=== PATIENT | male | born 1965 | race Two or more races ===

== ENCOUNTER 2016-10-28 23:44 | Emergency (ER) | payer MEDICARE, MEDICAID ==
[~2016-10-28] VITALS: Ht 170.2 cm; Wt 101.6 kg
[~2016-10-28 23:44] MED LIST: ALBUTEROL SULF8.5 GM INH; KEFLEX500 MG ORAL; MUCINEX DM ER1 EACH PO; NEXAFED30 MG ORAL; PREDNISONE20 MG ORAL; PROMETHAZINE-C118 M1 ORAL
[2016-10-28 23:55] VITALS: BP 138/88
[2016-10-29] MEDS ORDERED: Bactrim DS (160mg/800mg) tab ORAL ONE
[2016-10-29] MEDS ORDERED: Bacitracin Oint UD TOPIC ONE
--- NOTE | 2016-10-29 00:04 | Emergency Room Report ---
History of Present Illness General Chief Complaint: Skin Rash/Abscess Source: Patient Present Illness HPI Patient presents with pain and foreign body sensation in his left hand after he has been clearing brush 3 days ago. Has been using alcohol spray and Benadryl cream. The redness is increasing. He feels that this piece of glass stuck in his middle finger knuckle. No fevers. No joint pain. Swelling in the area. Pain 5/10, somewhat burning and constant, not radiating. tetanus up-to-date R handed Allergies: Coded Allergies: ASPIRIN (Verified Allergy, Unknown, 11/12/14) Grass (Verified Allergy, Unknown, 11/12/14) Patient History Past Medical History: see triage record Social History: Denies: smoking Social History Narrative clearing grandfather's brush Reviewed Nursing Documentation: PMH: Agreed, PSxH: Agreed Nursing Documentation-PMH Hx Asthma: Yes Review of Systems Constitutional: Denies: fever Respiratory: Denies: shortness of breath Cardiovascular: Denies: chest pain Gastrointestinal: Denies: nausea Musculoskeletal: Reports: see HPI Skin: Reports: see HPI Neurological: Denies: numbness Physical Exam Vital Signs Date Time Temp Pulse Resp B/P Pulse Ox O2 Delivery O2 Flow Rate FiO2 10/28/16 23:48 97.7 66 18 138/88 96 Room Air Sp02 EP Interpretation: reviewed, normal General Appearance: well appearing, no apparent distress Head: normocephalic, atraumatic Eyes: bilateral eye normal inspection ENT: hearing grossly normal, normal voice, moist mucus membranes Neck: full range of motion, supple Respiratory: no respiratory distress, speaking full sentences Cardiovascular #1: regular rate, rhythm Cardiovascular #2: 2+ radial (L) - good cap fill Gastrointestinal: normal inspection Musculoskeletal: digits/nails normal, normal range of motion, swelling - dorsally L hand Neurologic: alert, normal gait, grossly normal Psychiatric: mood/affect normal Skin: no rash, other - minimal erythema L hand dorsally Medical Decision Making Diagnostic Impression: Primary Impression: Cellulitis of hand ER Course Patient with swelling erythema and FB sensation L hand. Ddx: cellulitis, FB, contact dermatitis amongst others. Eval with x-ray. Treatment with antibiotics PO and topically. Also given motrin. Xrays without FB. Discussed possible splinter. Improved with treatment. Patient stable for outpatient observation and treatment. Other X-Ray Diagnostic Results Other X-Ray Diagnostic Results : X-Ray ordered: hand # of Views/Limited Vs Complete: 3 View Indication: Other EP Interpretation: Yes Interpretation: no dislocation, no fractures, other - sts Impression: No acute disease Interpreting ER Provider: signed Rafa Vazquez MD Last Vital Signs Date Time Temp Pulse Resp B/P Pulse Ox O2 Delivery O2 Flow Rate FiO2 10/29/16 01:03 97.7 18 138/88 96 Room Air 10/28/16 23:48 66 Status: improved Disposition: HOME, SELF-CARE Condition: Improved Scripts Diphenhydramine Hcl* (BENADRYL*) 25 Mg Capsule 25 MG ORAL Q6H Y for Itching, #14 CAP Prov: Rafa Vazquez M.D. 10/29/16 Trimethoprim/Sulfamethoxazole 160/800* (BACTRIM DS TABLET*) 1 Each Tablet 1 TAB ORAL Q12H, #14 TAB 0 Refills Prov: Rafa Vazquez M.D. 10/29/16 Bacitracin (Bacitracin) 28.4 Gm Oint...g. 1 APPLIC TOPIC BID, #10 GM Prov: Rafa Vazqeuz M.D. 10/29/16 Rafa Vazquez M.D. Oct 29, 2016 00:04
[2016-10-29] MEDS ORDERED: BACITRACIN15 GM TOPIC (00:37)
[2016-10-29] MEDS ORDERED: BENADRYL25 MG ORAL (00:37)
[2016-10-29] MEDS ORDERED: BACTRIM DS TAB1 EAC1 ORAL (00:37)
[2016-10-29 01:03] VITALS: BP 138/88
--- NOTE | 2016-10-29 11:05 | Diagnostic Imaging Report ---
Indication: FB Technique: 3 views left hand Comparison: none Findings: A large ring is seen on the fourth finger. Per technologist, patient unable to remove. No acute fractures. No dislocations. Joint spaces are preserved. Impression: No acute process This agrees with the preliminary interpretation provided by the emergency room physician
== END 2016-10-29 01:03 | disposition home or self-care (01) ==
LOC: EMR 23:59
DX: L03.114 Cellulitis of left upper limb (principal); J45.909 Unspecified asthma, uncomplicated
CPT/HCPCS: 99284

== ENCOUNTER 2018-07-22 14:29 | Emergency (ER) | payer MEDICAID, MEDICARE ==
[~2018-07-22] VITALS: Ht 170.2 cm; Wt 104.3 kg
[~2018-07-22 14:29] MED LIST changes: +BACITRACIN15 GM TOPIC; +BACTRIM DS TAB1 EAC1 ORAL; +BENADRYL25 MG ORAL
[2018-07-22 14:40] VITALS: BP 149/92
--- NOTE | 2018-07-22 14:40 | NUR ---
ED Nurse Note: Patient walked into ED c/o chest tightness that started last night, patient reports of no pain however states that he is having trouble breathing, patient is actively coughing, o2 sat at 98%. patient is alert and oriented x4, ambulatory with a steady gait, VSS
--- NOTE | 2018-07-22 14:44 | Emergency Room Report ---
History of Present Illness General Chief Complaint: chest tightness Source: Patient Present Illness HPI Patient is a 52-year-old male presented after increased chest tightness since last night. He reports having increased nonproductive cough. He states his been having some increase in broken blood vessels to his eyes for the past 2 weeks. He states he is recently had blood drawn but does not know what the results were. He states his primary care physician is Dr. Pancho Schreiber. He had prior history of asthma. Patient denies any new leg pain or swelling. He denies any exertional dyspnea. Patient reports having symptoms since last night constantly Allergies: Coded Allergies: ASPIRIN (Verified Allergy, Unknown, 11/12/14) Grass (Verified Allergy, Unknown, 11/12/14) Patient History Past Medical History: see triage record Reviewed Nursing Documentation: PMH: Agreed; PSxH: Agreed Nursing Documentation-PMH Hx Asthma: Yes Review of Systems All Other Systems: negative except mentioned in HPI Physical Exam Sp02 EP Interpretation: reviewed, normal General Appearance: normal inspection, well appearing, no apparent distress, alert, GCS 15 Head: atraumatic Eyes: bilateral eye other - left eye subconjunctival hemorrhage ENT: normal ENT inspection, hearing grossly normal, normal voice Neck: normal inspection, full range of motion, supple, no bony tend Respiratory: normal inspection, normal breath sounds, no respiratory distress, no retraction, wheezing Cardiovascular #1: regular rate, rhythm, no edema Gastrointestinal: normal inspection, normal bowel sounds, non tender, soft, no guarding, no hernia Genitourinary: no CVA tenderness Musculoskeletal: normal inspection, back normal, normal range of motion Neurologic: normal inspection, alert, oriented x3, responsive, executive director of marketing III-XII nml as tested, speech normal Psychiatric: normal inspection, judgement/insight normal, mood/affect normal Skin: normal inspection, normal color, no rash Medical Decision Making Diagnostic Impression: Primary Impression: Asthma exacerbation ER Course Patient presented for chest tightness. Differential diagnosis included but was not limited to asthma exacerbation, bronchitis, acute coronary syndrome, pulmonary embolism, pneumonia, aortic dissection, shingles, pneumothorax, aortic dissection, esophageal rupture, pericarditis. Because of complexity of patient's case laboratory testing and imaging studies were ordered. EKG interpreted by me showed normal sinus rhythm with a rate of [address] or T wave changes.Patient does not have any prior history of smoking, he has no recent leg pain or swelling. No prior malignancy.Patient does have prior history of asthma and his symptoms appear to be related to worsening of asthma. Patient was given breathing treatment. Given the patient's constant pain single troponin will be checked to evaluate for myocardial injury.Laboratory testing showed evidence of increased bicarbonate consistent patient's chronic lung disease. Patient's breathing symptoms improved after medications. He was given prescription for oral steroids as well as for albuterol. He is advised to recheck with his primary care physician in the next 1 to 2 days and return if he had any worsening of condition or other concerns. Labs Test 07/22/18 14:55 White Blood Count 6.3 K/UL (4.8-10.8) Red Blood Count 5.60 M/UL (4.70-6.10) Hemoglobin 16.5 G/DL (14.2-18.0) Hematocrit 49.3 % (42.0-52.0) Mean Corpuscular Volume 88 FL (80-99) Mean Corpuscular Hemoglobin 29.5 PG (27.0-31.0) Mean Corpuscular Hemoglobin Concent 33.5 G/DL (32.0-36.0) Red Cell Distribution Width 11.8 % (11.6-14.8) Platelet Count 152 K/UL (150-450) Mean Platelet Volume 7.6 FL (6.5-10.1) Neutrophils (%) (Auto) 57.2 % (45.0-75.0) Lymphocytes (%) (Auto) 30.7 % (20.0-45.0) Monocytes (%) (Auto) 8.0 % (1.0-10.0) Eosinophils (%) (Auto) 2.8 % (0.0-3.0) Basophils (%) (Auto) 1.4 % (0.0-2.0) Prothrombin Time 11.4 SEC (9.30-11.50) Prothromb Time International Ratio 1.1 (0.9-1.1) Activated Partial Thromboplast Time 32 SEC (23-33) Sodium Level 137 MMOL/L (136-145) Potassium Level 3.9 MMOL/L (3.5-5.1) Chloride Level 102 MMOL/L (98-107) Carbon Dioxide Level 33 MMOL/L (21-32) Anion Gap 2 mmol/L (5-15) Blood Urea Nitrogen 10 mg/dL (7-18) Creatinine 1.1 MG/DL (0.55-1.30) Estimat Glomerular Filtration Rate > 60 mL/min (>60) Glucose Level 84 MG/DL (74-106) Calcium Level 8.8 MG/DL (8.5-10.1) Total Bilirubin 1.1 MG/DL (0.2-1.0) Direct Bilirubin 0.2 MG/DL (0.0-0.3) Aspartate Amino Transf (AST/SGOT) 23 U/L (15-37) Alanine Aminotransferase (ALT/SGPT) 33 U/L (12-78) Alkaline Phosphatase 73 U/L (46-116) Troponin I 0.000 ng/mL (0.000-0.056) Total Protein 7.6 G/DL (6.4-8.2) Albumin 3.7 G/DL (3.4-5.0) Globulin 3.9 g/dL Albumin/Globulin Ratio 0.9 (1.0-2.7) EKG Diagnostic Results Rate: tachycardiac Status: improved Disposition: HOME, SELF-CARE Condition: Stable Scripts Guaifenesin/Dextromethorphan (Guaifenesin Dm Syrup) 5 Ml Syrup 1 TSP ORAL Q8H, #118 ML 0 Refills Prov: Saad Schuster MD 07/22/18 Albuterol Sulfate* (ALBUTEROL SULFATE MDI*) 8.5 Gm Hfa.aer.ad 2 PUFF INH Q4H PRN for cough/wheezing, #1 EA 0 Refills Prov: Saad Schuster MD 07/22/18 Prednisone* (PREDNISONE*) 20 Mg Tablet 40 MG ORAL DAILY, #10 TAB Prov: Saad Schuster MD 07/22/18 Saad Schuster MD July 22, 2018 14:44
[2018-07-22] MEDS ORDERED: Albuterol/Ipratropium 3ml neb HHN ONE (14:45)
[2018-07-22 15:10] LABS: BASOPHILS % (AUTO) 1.4 % (0.0-2.0); EOSINOPHILS % (AUTO) 2.8 % (0.0-3.0); HEMATOCRIT 49.3 % (42.0-52.0); HEMOGLOBIN 16.5 G/DL (14.2-18.0); LYMPHOCYTES % (AUTO) 30.7 % (20.0-45.0); MEAN CORPUSCULAR VOLUME 88 FL (80-99); NEUTROPHILS % (AUTO) 57.2 % (45.0-75.0); PLATELET COUNT 152 K/UL (150-450); RED CELL DISTRIBUTION WIDTH 11.8 % (11.6-14.8); WHITE BLOOD COUNT 6.3 K/UL (4.8-10.8)
[2018-07-22 15:19] LABS: INR 1.1 (0.9-1.1)
[2018-07-22 15:36] LABS: ALANINE AMINOTRANSFERASE 33 U/L (12-78); ALBUMIN 3.7 G/DL (3.4-5.0); ALBUMIN/GLOBULIN RATIO 0.9 (1.0-2.7); ALKALINE PHOSPHATASE 73 U/L (46-116); ANION GAP 2 mmol/L (5-15); ASPARTATE AMINO TRANSFERASE 23 U/L (15-37); BILIRUBIN,TOTAL 1.1 MG/DL (0.2-1.0); CALCIUM 8.8 MG/DL (8.5-10.1); CARBON DIOXIDE 33 MMOL/L (21-32); CHLORIDE 102 MMOL/L (98-107); CREATININE 1.1 MG/DL (0.55-1.30); POTASSIUM 3.9 MMOL/L (3.5-5.1); SODIUM 137 MMOL/L (136-145)
[2018-07-22 15:42] LABS: BILIRUBIN,DIRECT 0.2 MG/DL (0.0-0.3); BLOOD UREA NITROGEN 10 mg/dL (7-18)
[2018-07-22] MEDS ORDERED: ALBUTEROL SULF8.5 GM INH (16:06)
[2018-07-22] MEDS ORDERED: PREDNISONE20 MG ORAL (16:06)
[2018-07-22] MEDS ORDERED: GUAIFENESIN DM118 M1 ORAL (16:06)
[2018-07-22 16:15] VITALS: BP 135/76
--- NOTE | 2018-07-22 16:15 | NUR ---
ER DISCHARGE NOTE: Patient is cleared to be discharged per ERMD, pt is aox4, on room air, with stable vital signs. pt was given dc and prescription instructions, pt was able to verbalize understanding, pt id band and iv site removed without complications. pt is able to ambulate with steady gait. pt took all belongings.
== END 2018-07-22 16:17 | disposition home or self-care (01) ==
LOC: EMR 14:45
DX: J45.901 Unspecified asthma with (acute) exacerbation (principal); R05 Cough; Z88.6 Allergy status to analgesic agent; Z91.048 Other nonmedicinal substance allergy status; R00.0 Tachycardia, unspecified
CPT/HCPCS: 36415; 80053; 82248; 84484; 85025; 85610; 85730; 93005; 94640; 94664; 99284; J7620